=== PATIENT | male | born 1995 | race Caucasian/White ===

== ENCOUNTER 2020-01-24 15:31 | Emergency (ER) | payer MEDICAID ==
[~2020-01-24] VITALS: Ht 193 cm; Wt 68.2 kg
[2020-01-24] MEDS ORDERED: IBUP-1984 PO (18:10)
[2020-01-24] MEDS ORDERED: PENI500T2 PO (18:10)
== END 2020-01-24 18:20 | disposition home or self-care (01) ==
LOC: ER 15:31 → MERGE 15:31 → ER 18:20
DX: K04.7 Periapical abscess without sinus (principal); K13.79 Other lesions of oral mucosa; R60.9 Edema, unspecified; Z79.2 Long term (current) use of antibiotics; Z79.899 Other long term (current) drug therapy
CPT/HCPCS: 99283

== ENCOUNTER 2020-03-04 11:01 | Emergency (ER) | payer MEDICAID ==
[~2020-03-04] VITALS: Ht 190.5 cm; Wt 72.4 kg
[2020-03-04 11:04] VITALS: BP 124/89
[2020-03-04] MEDS ORDERED: PENI500T2 PO (11:18)
== END 2020-03-04 11:27 | disposition home or self-care (01) ==
LOC: ER 11:01
DX: K02.9 Dental caries, unspecified (principal); F17.200 Nicotine dependence, unspecified, uncomplicated; Z79.2 Long term (current) use of antibiotics
CPT/HCPCS: 99283

== ENCOUNTER 2021-12-28 23:09 | Emergency (ER) | payer MEDICAID ==
[~2021-12-28] VITALS: Ht 193 cm; Wt 72.7 kg
[2021-12-28 23:13] VITALS: BP 133/96
[2021-12-29] MEDS ORDERED: CLIN300C71 PO (00:57)
[2021-12-29] MEDS ORDERED: clindamycin 150mg capsule PO ONE (01:00)
[2021-12-29] MEDS ORDERED: cephalexin 250mg capsule PO ONE (01:00)
--- NOTE | 2021-12-29 01:09 | NUR ---
PO MED GIVEN
== END 2021-12-29 01:10 | disposition home or self-care (01) ==
LOC: ER 23:10
DX: L03.312 Cellulitis of back [any part except buttock and flank] (principal); L02.212 Cutaneous abscess of back [any part, except buttock and flank]; Z79.2 Long term (current) use of antibiotics
CPT/HCPCS: 99284

== ENCOUNTER 2022-04-16 21:29 | Emergency (ER) | payer MEDICAID ==
[~2022-04-16] VITALS: Ht 193 cm; Wt 68.2 kg
[2022-04-16 21:33] VITALS: BP 131/82
== END 2022-04-17 05:04 | disposition left against medical advice (07) ==
LOC: ER 21:29
DX: R22.0 Localized swelling, mass and lump, head (principal); Z53.21 Procedure and treatment not carried out due to patient leaving prior to being seen by health care provider

== ENCOUNTER 2022-04-19 15:52 | Emergency (ER) | payer MEDICAID ==
[~2022-04-19] VITALS: Ht 193 cm; Wt 70.6 kg
[2022-04-19 16:06] VITALS: BP 131/83
[2022-04-19] MEDS ORDERED: LIDOcaine 1% w/EPI 1:100,000 30ml vial (MDV) IJ ONE (17:30)
[2022-04-19] MEDS ORDERED: SULF1TAB45 PO (17:55)
[2022-04-19] MEDS ORDERED: sulfamethoxazole/trimethoprim DS (800/160mg) tablet PO ONE (17:55)
== END 2022-04-19 18:15 | disposition home or self-care (01) ==
LOC: ER 15:52
DX: K13.0 Diseases of lips (principal); L02.212 Cutaneous abscess of back [any part, except buttock and flank]; Z79.2 Long term (current) use of antibiotics
CPT/HCPCS: 10060; 99283; A6449

== ENCOUNTER 2024-10-25 17:18 | Emergency (ER) | payer MEDICAID ==
[~2024-10-25] VITALS: Ht 193 cm; Wt 70.5 kg
[2024-10-25 17:55] VITALS: BP 144/86; PULSE 81; RESP 16; O2SAT 100
[2024-10-25] MEDS ORDERED: AMOX-117 PO (18:09)
[2024-10-25 18:16] VITALS: TEMP 96.8
== END 2024-10-25 18:18 | disposition home or self-care (01) ==
LOC: ER 17:19
DX: K04.7 Periapical abscess without sinus (principal); F17.210 Nicotine dependence, cigarettes, uncomplicated
CPT/HCPCS: 99283